=== PATIENT | female | born 1970 | race Caucasian/White ===

== ENCOUNTER 2018-03-09 13:44 | Outpatient (CLI) | payer OTHER ==
--- NOTE | 2018-03-09 15:41 | ULT ---
FOCUSED ULTRASOUND OF THE RIGHT BREAST: 03/09/2018 HISTORY: Faint calcifications in the upper outer right breast and suspicious mass in the left breast. FINDINGS: Focused ultrasound of the right upper outer quadrant demonstrates no solid mass or abnormal shadowing . IMPRESSION: Unremarkable focused ultrasound of the right breast. Mammogram demonstrates a cluster of nonspecific microcalcifications in the upper outer right breast, for which a stereotactic biopsy is recommended. POS: OFF
--- NOTE | 2018-03-09 15:45 | ULT ---
FOCUSED ULTRASOUND OF THE LEFT BREAST: 03/09/2018 HISTORY: Palpable abnormality in the left breast. Suspicious calcifications in the left breast, in the area o f palpable concern on mammography. FINDINGS: A focused ultrasound in the area of palpable concern demonstrates an irregularity marginated, heterog eneously hypoechoic, solid mass, measuring 2.2 x 1.6 x 1.5 cm. This correlates with the palpable abn ormality, and it contains punctate foci of increased echogenicity, which are felt to represent the in determinate calcifications noted on mammography. IMPRESSION: BI-RADS 4-Suspicious abnormality. Biopsy advised. Recommend ultrasound-guided core biopsy of solid mass in the left breast. CODE T POS: OFF
== END 2018-03-09 13:45 | disposition home or self-care (01) ==
LOC: BICMAMMO 13:44
PROVIDERS: ATTEND Pediatrics
DX: N63.20 Unspecified lump in the left breast, unspecified quadrant (principal); Z80.3 Family history of malignant neoplasm of breast
CPT/HCPCS: 77066; G0279

== ENCOUNTER → 2018-03-18 | Day surgery (SDC) | payer OTHER ==
--- NOTE | 2018-03-18 10:42 | ULT ---
ULTRASOUND GUIDED LEFT BREAST BIOPSY: Date: 03/18/18 HISTORY: Mass and calcifications noted on recent mammogram and ultrasound, recommended for biopsy. FINDINGS: After informed consent was obtained, the patient was prepped and draped in the normal sterile fashion . The lesion in question was in the 3 o'clock position of the left breast. It measures approximately 2.2 cm in length and does show some internal calcifications. The skin was anesthetized with 1% lidoca ine mixed with sodium bicarb. A small skin incision was made with a #11 scalpel blade. A total of thr ee core biopsies were performed using a 14 gauge needle. Subsequently, a biopsy clip was deployed. Th e clip is in good position. The patient tolerated the procedure well. No immediate complications. IMPRESSION: Ultrasound directed left breast biopsy. No immediate complications of the procedure. POS: OFF
--- NOTE | 2018-03-18 10:45 | MMO ---
STEREOTACTIC LOCALIZATION AND PERCUCTANEOUS BIOPSY OF RIGHT BREAST CALCIFICATIONS: Date: 03/18/18 HISTORY: Right breast calcifications noted on recent mammogram recommended for biopsy. TECHNIQUE: After informed consent was obtained, the patient was prepped and draped in the normal sterile fashion . Local anesthesia with obtained with 1% lidocaine mixed with sodium bicarb. A small skin incision wa s made with a #11 scalpel blade. CC approach was used for this biopsy. After the calcifications were localized stereotactically, biopsies were performed using a 10 gauge vacuum-assisted needle at the 12 o'clock, 2 o'clock, 4 o'clock, 6 o'clock, 8 o'clock, and 10 o'clock positions. Specimen radiograph c onfirmed the presence of some calcifications within the breast specimen. A biopsy clip was deployed. The patient tolerated the procedure well. Hemostasis was obtained without difficulty. There were no i mmediate complications of the procedure. IMPRESSION: Stereotactic localization and percutaneous biopsy of right breast calcifications. POS: OFF
--- NOTE | 2018-03-18 10:46 | MMO ---
SPECIMEN RADIOGRAPH: Specimen radiograph confirms the presence of breast calcifications on the specimen. POS: OFF
--- NOTE | 2018-03-18 10:47 | MMO ---
RIGHT UNILATERAL MAMMOGRAM: Date: 03/18/18 HISTORY: Post biopsy mammogram. FINDINGS: Post biopsy images of the breast confirm the presence of a breast clip, which is in the area of the c alcifications. IMPRESSION: Post mammogram showing clip placement, which corresponds to the area of questionable calcifications i n the upper outer right breast. POS: OFF
== END ==
LOC: MAMMO 06:53
PROVIDERS: ATTEND Pediatrics
PROC: 0HBV3ZX Excision of Bilateral Breast, Percutaneous Approach, Diagnostic (ICD-10-PCS; principal; 2018-03-18)
DX: C50.812 Malignant neoplasm of overlapping sites of left female breast (principal); N60.81 Other benign mammary dysplasias of right breast; R92.0 Mammographic microcalcification found on diagnostic imaging of breast
CPT/HCPCS: 19083; 19283; 76098; 88305; 88341; 88342

== ENCOUNTER 2018-04-15 00:33 | Outpatient (CLI) | payer OTHER ==
[2018-04-15 13:23] LABS: #Basophils 0.1 thou/uL (0.0-0.2); #Eosinphils 0.1 thou/uL (0.0-0.7); #Lymphocytes 2.6 thou/uL (1.20-3.40); #Monocytes 0.5 thou/uL (0.11-0.59); #Neutrophils 2.9 thou/uL (1.40-6.50); %Basophils 1.7 % (0.0-1.0); %Eosinophils 0.8 % (0.0-10.0); %Lymphocytes 42.4 % (21.0-51.0); %Monocytes 8.8 % (0.0-10.0); %Neutrophils 46.3 % (42.0-75.0); Hemoglobin 14.9 g/dL (12.0-16.0); Mean Corpuscular HGB CONC 33.1 g/dL (32.0-36.0); Mean Corpuscular Hemoglobin 33.1 pg (27.0-31.0); Mean Platelet Volume 6.5 fL (7.4-10.4); Platelet Count 295 thou/uL (130-400); RBC Distribution Width 11.1 % (11.5-14.5); Red Blood Cell (RBC) Count 4.49 mill/uL (4.20-5.40); White Blood Cell (WBC) Count 6.2 thou/uL (4.8-10.8)
[2018-04-15 13:57] LABS: BHCG - Serum Negative (NEGATIVE); Pregs Control Background? CLEAR/WHITE (CLR/WHITE); Pregs Control Bar Appear? YES (CONTROL BAR)
[2018-04-15 13:59] LABS: Anion Gap 13 mmol/L (10-20); BUN (Urea Nitrogen) 11 mg/dL (7.0-18.7); Calc. Creatinine Clearance 0 mL/min (70-130); Calcium 9.9 mg/dL (7.8-10.44); Carbon Dioxide 23 mmol/L (22-29); Chloride 103 mmol/L (98-107); Estimated GFR-MDRD Greater than 90; Glucose 92 mg/dL (70-105); Sodium 135 mmol/L (136-145)
--- NOTE | 2018-04-16 07:50 | EKG ---
Test Reason : Blood Pressure : / mmHG Vent. Rate : 096 BPM Atrial Rate : 096 BPM P-R Int : 158 ms QRS Dur : 074 ms QT Int : 338 ms P-R-T Axes : 077 024 075 degrees QTc Int : 427 ms Normal sinus rhythm with sinus arrhythmia Possible Left atrial enlargement Possible Anterior infarct , age undetermined Abnormal ECG No previous ECGs available Confirmed by STIVEN CHANCE ([id number]) on 04/16/2018 7:50:06 AM Referred By: LUZ Confirmed By:STIVEN CHANCE
== END 2018-04-15 00:34 | disposition home or self-care (01) ==
LOC: LABBT 00:33
PROVIDERS: ATTEND Specialist
DX: Z01.818 Encounter for other preprocedural examination (principal); C50.912 Malignant neoplasm of unspecified site of left female breast; Z17.0 Estrogen receptor positive status [ER+]; N60.91 Unspecified benign mammary dysplasia of right breast; R59.0 Localized enlarged lymph nodes
CPT/HCPCS: 80048; 84703; 85025; 93005; 93010

== ENCOUNTER 2018-04-21 07:26 | Inpatient (IN) | payer OTHER ==
[2018-04-21] MEDS ORDERED: Ketorolac Tromethamine 30 MG/ML VIAL ONE (09:34)
--- NOTE | 2018-04-21 09:38 | NM ---
LEFT BREAST LYMPHOSCINTIGRAPHY: Date: 04/21/18 HISTORY: Neoplasm of the left breast. TECHNIQUE: A left breast lymphoscintigraphy was performed after administration of 0.39 mCi of technetium-99m chantal tered sulfur colloid injected in a subcutaneous periareolar location. FINDINGS: Periareolar uptake is from the patient's injections. The contrast extends from the periareolar region to the left axilla. There appear to be two left axillary sentinel lymph nodes. IMPRESSION: Left axillary sentinel lymph nodes as above. POS: SCOT
[2018-04-21] MEDS ORDERED: Isosulfan Blue 50 MG/5 ML VIAL ONE (10:28)
[2018-04-21] MEDS ORDERED: Bupivacaine/Epinephrine 0.25% 30 ML VIAL ONE (10:28)
[2018-04-21] MEDS ORDERED: Fentanyl 250 MCG/5 ML VIAL ONE (10:35)
[2018-04-21] MEDS ORDERED: Midazolam HCl 2 mg/2 ml Vial ONE (10:36)
[2018-04-21] MEDS ORDERED: Fentanyl 100 MCG/2 ML VIAL ONE (15:20)
[2018-04-21] MEDS ORDERED: Glycopyrrolate 0.2 MG/ML 5 ML SYRINGE ONE (15:23)
[2018-04-21] MEDS ORDERED: ePHEDrine 50 MG/ML VIAL ONE (15:23)
[2018-04-21] MEDS ORDERED: Ondansetron PF 4 MG/2 ML Vial ONE (15:23)
[2018-04-21] MEDS ORDERED: Lidocaine 1% PF 5 ML VIAL ONE (15:23)
[2018-04-21] MEDS ORDERED: PHENYLEPHRINE-NS 100 MCG/ML 10 ML SYRINGE ONE (15:23)
[2018-04-21] MEDS ORDERED: Esmolol 100 MG/10 ML VIAL ONE (15:23)
[2018-04-21] MEDS ORDERED: Dexamethasone 20 MG/5 ML VIAL ONE (15:23)
[2018-04-21] MEDS ORDERED: PROPOFOL 200 MG/20 ML VIAL ONE (15:23)
[2018-04-21] MEDS ORDERED: Rocuronium Bromide 10 MG/ML (10ML VIAL) ONE (15:23)
[2018-04-21] MEDS ORDERED: HYDROcodone/Acetaminophen 7.5/325 mg Tablet PO PRN (17:29)
[2018-04-21] MEDS ORDERED: Dextrose 5% in Water 1,000 ML IV PRN (17:29)
[2018-04-21] MEDS ORDERED: Morphine 4 MG/ML VIAL SLOW IVP PRN ×2 (17:29)
[2018-04-21] MEDS ORDERED: Promethazine HCl 25 MG/ML VIAL IM PRN (17:29)
[2018-04-21] MEDS ORDERED: Ondansetron PF 4 MG/2 ML Vial IVP PRN (17:29)
[2018-04-21] MEDS ORDERED: Dextrose 50% Abboject 50 ML SYRINGE SLOW IVP PRN (17:29)
[2018-04-21] MEDS ORDERED: hydrALAZINE 20 MG/ML VIAL SLOW IVP PRN (17:29)
[2018-04-21] MEDS ORDERED: D5 1/2 NS w/20 mEq KCL 1,000 ML IV SCH (17:29)
[2018-04-21 17:42] VITALS: BMI 24.5
[2018-04-21] MEDS: HYDROcodone/Acetaminophen 7.5/325 mg Tablet PO PRN (18:30)
[2018-04-21] MEDS ORDERED: Famotidine 20 MG TAB PO SCH (21:00)
[2018-04-21] MEDS ORDERED: Lisinopril 20 MG TAB PO SCH (21:00)
[2018-04-21] MEDS: ALPRAZolam 0.25 MG TAB PO PRN (21:04)
[2018-04-22] MEDS: HYDROcodone/Acetaminophen 7.5/325 mg Tablet PO PRN ×2 (00:13→07:38)
[2018-04-22 05:02] LABS: #Lymphocytes 1.8 thou/uL (1.20-3.40); %Basophils 0.3 % (0.0-1.0); %Eosinophils 0.1 % (0.0-10.0); %Lymphocytes 20.7 % (21.0-51.0); %Neutrophils 67.9 % (42.0-75.0); Hemoglobin 10.2 g/dL (12.0-16.0); Mean Corpuscular HGB CONC 33.5 g/dL (32.0-36.0); Mean Corpuscular Hemoglobin 33.7 pg (27.0-31.0); Mean Platelet Volume 6.7 fL (7.4-10.4); Platelet Count 214 thou/uL (130-400); RBC Distribution Width 10.9 % (11.5-14.5); Red Blood Cell (RBC) Count 3.03 mill/uL (4.20-5.40); White Blood Cell (WBC) Count 8.9 thou/uL (4.8-10.8)
[2018-04-22 05:15] LABS: Anion Gap 7 mmol/L (10-20); BUN (Urea Nitrogen) 7 mg/dL (7.0-18.7); Calc. Creatinine Clearance 120 mL/min (70-130); Calcium 8.2 mg/dL (7.8-10.44); Carbon Dioxide 25 mmol/L (22-29); Chloride 107 mmol/L (98-107); Estimated GFR-MDRD Greater than 90; Glucose 156 mg/dL (70-105); Sodium 135 mmol/L (136-145)
[2018-04-22] MEDS ORDERED: Amlodipine 5 MG TAB PO SCH (09:00)
[2018-04-22] MEDS: ALPRAZolam 0.25 MG TAB PO PRN (09:08)
[2018-04-22 11:49] VITALS: BP 161/75; TEMP 97.1
--- NOTE | 2018-04-23 12:31 | OP ---
DATE OF PROCEDURE: 04/21/2018 PREOPERATIVE DIAGNOSES: Left breast invasive ductal carcinoma, right breast atypical ductal hyperplasia. POSTOPERATIVE DIAGNOSES: Left breast invasive ductal carcinoma, right breast atypical ductal hyperplasia, metastatic disease to left axillary lymph nodes. OPERATION PERFORMED: Bilateral nipple sparing mastectomy, left axillary sentinel lymph node biopsy, left axillary lymph node dissection. ANESTHESIA: General endotracheal. INDICATIONS: The patient is a 48-year-old white female. She recently presented with a fairly large (relative to the size of her breast) left breast cancer. She was recognized to have at least one enlarged lymph node in her left axilla as well. A separate biopsy revealed atypical ductal hyperplasia in the right breast. After discussing options regarding surgical treatment of her disease, she has elected to proceed with a bilateral nipple sparing mastectomy with plans for reconstruction. Lymphoscintigraphy was obtained preoperatively to identify the left axillary sentinel lymph nodes. DESCRIPTION OF OPERATION: Informed consent was obtained. The patient was taken to the operating room where general endotracheal anesthesia was obtained with the patient in supine position. Lymphazurin was infiltrated in the left periareolar subdermal tissue and the breast was massaged for about 5 minutes. Attention was then turned to the left axilla. A transverse incision was created at the inferior aspect of the axilla and dissection was carried through skin and subcutaneous tissue. Neoprobe was used to identify areas of maximum radio intensity. I additionally was able to dissect along the blue lymphatics to identify blue-stained lymph nodes. In so doing, I was able to dissect three sentinel lymph nodes, which I submitted for touch prep cytology. Unfortunately, at least one of these was recognized to have metastatic disease. Since she was getting a mastectomy, I decided to proceed with the full axillary node dissection. The incision was lengthened somewhat. Dissection was carried out initially anteriorly and a flap was raised to identify the pectoralis muscles. I dissected up along the lateral aspect of the pectoralis muscles into the axilla and was able to identify the left axillary vein. I then swept the fatty and lymphatic tissue inferiorly out of the axilla. In so doing, I identified both the long thoracic and thoracodorsal nerves and spared these throughout the dissection. The remainder of the fatty lymphatic tissue was swept out of the axilla as a separate specimen and submitted. Hemostasis was obtained within the wound. A #19 round fluted drain was brought out inferiorly and secured with 3-0 nylon suture. The wound was closed in layers with 3-0 and 4-0 Monocryl suture. Attention was then turned to the right breast. Of note, the bilateral nipple sparing mastectomy was performed in identical fashion on both sides. The only difference was the attempt to gain appropriate clearance of the malignancy in the left breast. A curvilinear incision was created in the inferior mammary crease. Dissection was carried through skin and subcutaneous tissue down to the pectoralis and scalene fascia. The posterior aspect of the breast was dissected off the pectoralis in an ascending fashion, maintaining hemostasis with PlasmaBlade electrocautery. Then dissected the skin and subcutaneous tissue off the breast tissue, grasping the breast tissue with an Allis clamp. Efforts were made to maintain appropriate tissue thickness on the skin flap to maximize viability. The dissection was carried medially towards the sternum and laterally to the lateral aspect of the breast tissue and up along the axillary tail. The specimen was removed intact and tagged with suture for orientation and passed off the field. The subareolar tissue on the left breast was submitted as a specimen to ensure that there was no malignancy involving the nipple and this was negative. The area of the malignancy on the left breast in the upper lateral aspect approximately 3 o'clock radian was identified. Efforts were made to obtain negative margins on the anterior aspect of the cancer as it was recognized to be relatively close to the skin. There was no visible malignancy when the specimen was removed. On each side, a #19 round fluted drain was placed within the wound, that was brought out laterally and inferiorly and secured with a 3-0 nylon suture. The wound was irrigated and meticulous hemostasis was achieved with electrocautery. The skin edges were approximated with 3-0 and 4-0 Monocryl suture and Dermabond was placed externally over all incisions. Fluffed gauze was placed across the chest wall along with a Dio wrap. There were no complications. Blood loss was minimal. The patient tolerated the procedure well and was taken to the recovery room in stable condition. Job ID: [id number]
== END 2018-04-22 14:03 | disposition home or self-care (01) | DRG 580 ==
LOC: SDC 07:26 → SJJU 16:44
PROVIDERS: ADMIT Specialist; ATTEND Specialist
PROC: 0HTV0ZZ Resection of Bilateral Breast, Open Approach (ICD-10-PCS; principal; 2018-04-21)
PROC: 07B60ZX Excision of Left Axillary Lymphatic, Open Approach, Diagnostic (ICD-10-PCS; 2018-04-21)
DX: C50.912 Malignant neoplasm of unspecified site of left female breast (principal); C77.3 Secondary and unspecified malignant neoplasm of axilla and upper limb lymph nodes; N60.91 Unspecified benign mammary dysplasia of right breast
CPT/HCPCS: 36415; 78195; 80048; 85025; 88305; 88307; 88309; 88331; 88334; 88342; A9541; J0131; J1100; J1885; J2001; J2250; J2405; J2704; J3010; J3490; Q9968

== ENCOUNTER 2018-05-19 08:46 | Day surgery (SDC) | payer OTHER ==
[2018-05-18 13:39] VITALS: BMI 23.2
[2018-05-19] MEDS ORDERED: Ketorolac Tromethamine 30 MG/ML VIAL ONE (09:48)
[2018-05-19 10:04] LABS: #Basophils 0.1 thou/uL (0.0-0.2); #Eosinphils 0.1 thou/uL (0.0-0.7); #Lymphocytes 1.8 thou/uL (1.20-3.40); #Monocytes 0.7 thou/uL (0.11-0.59); #Neutrophils 2.3 thou/uL (1.40-6.50); %Basophils 2.8 % (0.0-1.0); %Eosinophils 1.4 % (0.0-10.0); %Lymphocytes 36.2 % (21.0-51.0); %Monocytes 13.7 % (0.0-10.0); %Neutrophils 45.9 % (42.0-75.0); Hemoglobin 12.6 g/dL (12.0-16.0); Mean Corpuscular HGB CONC 33.4 g/dL (32.0-36.0); Mean Corpuscular Hemoglobin 32.3 pg (27.0-31.0); Mean Corpuscular Volume 96.8 fL (78.0-98.0); Mean Platelet Volume 6.1 fL (7.4-10.4); Platelet Count 331 thou/uL (130-400); RBC Distribution Width 11.6 % (11.5-14.5); Red Blood Cell (RBC) Count 3.89 mill/uL (4.20-5.40); White Blood Cell (WBC) Count 4.9 thou/uL (4.8-10.8)
[2018-05-19] MEDS ORDERED: Lidocaine 2% PF 5 ML VIAL ONE (10:13)
[2018-05-19] MEDS ORDERED: Bupivacaine/Epinephrine 0.25% 30 ML VIAL ONE (10:13)
[2018-05-19 10:19] LABS: Anion Gap 10 mmol/L (10-20); BUN (Urea Nitrogen) 11 mg/dL (7.0-18.7); Calc. Creatinine Clearance 94 mL/min (70-130); Calcium 9.7 mg/dL (7.8-10.44); Carbon Dioxide 29 mmol/L (22-29); Chloride 101 mmol/L (98-107); Estimated GFR-MDRD Greater than 90; Glucose 99 mg/dL (70-105); Potassium 3.8 mmol/L (3.5-5.1); Sodium 136 mmol/L (136-145)
[2018-05-19] MEDS ORDERED: Lidocaine 2% Jelly 5 ML TUBE ONE (10:44)
[2018-05-19] MEDS ORDERED: Propofol 500 MG/50 ML VIAL ONE (10:44)
[2018-05-19] MEDS ORDERED: Fentanyl 100 MCG/2 ML VIAL ONE (10:44)
[2018-05-19] MEDS ORDERED: Midazolam HCl 2 mg/2 ml Vial ONE (10:50)
--- NOTE | 2018-05-19 12:02 | RAD ---
Radiograph chest one view: HISTORY: Status post MediPort placement in 48-year-old female FINDINGS: The visualized lung espinoza are clear. The cardiomediastinal silhouette is normal. No pneumothorax. Th ere is a right subclavian MediPort with distal tip overlying the lower portion of the SVC. IMPRESSION: 1. No acute cardiopulmonary findings. 2. Right subclavian implantable vascular access port placement without pneumothorax.
[2018-05-19] MEDS ORDERED: PROPOFOL 200 MG/20 ML VIAL ONE (12:12)
--- NOTE | 2018-05-20 14:09 | OP ---
DATE OF PROCEDURE: 05/19/2018 PREOPERATIVE DIAGNOSIS: Breast cancer, metastatic to a lymph node. POSTOPERATIVE DIAGNOSIS: Breast cancer, metastatic to a lymph node. OPERATION PERFORMED: Placement of a right subclavian low-profile power compatible MediPort. ANESTHESIA: Total intravenous anesthesia with local using 0.25% Marcaine with epinephrine. INDICATIONS: The patient is a 48-year-old white female. She has recently undergone bilateral breast surgery for left breast cancer. She requires adjuvant chemotherapy and was taken to the operating room at this time for MediPort placement for chemotherapy administration. DESCRIPTION OF OPERATION: Informed consent was obtained. The patient was taken to the operating room where total intravenous anesthesia was obtained with the patient in supine position. Right periclavicular area was prepped with ChloraPrep and draped in sterile fashion. Local anesthetic was infiltrated and a large-gauge needle was passed under the clavicle in the subclavian vein. Guidewire was passed through the needle and fluoroscopically confirmed to enter the superior vena cava. Additional local anesthetic was infiltrated and transverse incision was created based on needle insertion site. A subcutaneous pocket was dissected inferiorly. Introducer dilator was passed over the guidewire under fluoroscopic guidance. The guidewire and dilator were removed, and the catheter was passed through the introducer. The tip of the catheter was positioned at the atriocaval junction and the catheter was trimmed to the appropriate length and secured to the locking hub of the MediPort. The port was then placed in the subcutaneous pocket where it was secured to the pectoral fascia with 2 interrupted sutures of 3-0 Prolene. The incision was then closed in layers with 3-0 and 4-0 Monocryl. Additional local anesthetic was infiltrated. The port was cannulated with a Solares needle and it aspirated blood freely and was flushed with heparinized saline. Dermabond was placed externally on the skin incision. There were no complications. Blood loss was negligible. The patient tolerated the procedure well and was taken to recovery room in stable condition. FINDINGS: I used a low-profile power compatible MediPort. The patient's anatomy was within normal limits and there were no problems during the procedure. FINDINGS: A low-profile port was used as she is a thin small patient. It was placed into the right subclavian vein uneventfully. There were no complications and negligible blood loss. Job ID: [id number]
== END 2018-05-19 12:40 | disposition home or self-care (01) ==
LOC: SDC 08:46
PROVIDERS: ATTEND Specialist
PROC: 0JH63WZ Insertion of Totally Implantable Vascular Access Device into Chest Subcutaneous Tissue and Fascia, Percutaneous Approach (ICD-10-PCS; principal; 2018-05-19)
DX: C50.912 Malignant neoplasm of unspecified site of left female breast (principal); C77.3 Secondary and unspecified malignant neoplasm of axilla and upper limb lymph nodes; F17.210 Nicotine dependence, cigarettes, uncomplicated; Z17.0 Estrogen receptor positive status [ER+]; Z79.899 Other long term (current) drug therapy; Z88.1 Allergy status to other antibiotic agents; Z88.8 Allergy status to other drugs, medicaments and biological substances; Z91.048 Other nonmedicinal substance allergy status; Z90.13 Acquired absence of bilateral breasts and nipples
CPT/HCPCS: 36415; 71045; 80048; 85025; C1788; J0131; J1642; J1885; J2001; J2250; J2704; J3010

== ENCOUNTER 2018-05-20 14:21 | Outpatient (CLI) | payer OTHER | END 2018-05-20 14:22 | disposition home or self-care (01) | LOC: ULT 14:21 | PROVIDERS: ATTEND Internal Medicine Hematology & Oncology | DX: C50.412 Malignant neoplasm of upper-outer quadrant of left female breast (principal); I08.1 Rheumatic disorders of both mitral and tricuspid valves; Z79.899 Other long term (current) drug therapy | CPT/HCPCS: 93306 ==

== ENCOUNTER 2019-05-11 08:28 | Outpatient (CLI) | payer OTHER ==
--- NOTE | 2019-05-11 09:28 | RAD ---
TWO VIEWS CHEST: HISTORY: Left-sided chest pain. Cough and fever on and off since March. History of breast cancer. COMPARISON: 05/19/2018. FINDINGS: The left-sided MediPort has been removed. Cardiac silhouette and pulmonary vasculature are within no rmal limits. The lungs are clear. Surgical clips again overlie the left axillary region. No other interval change. IMPRESSION: No acute cardiopulmonary process. POS: [facility]
== END 2019-05-11 08:29 | disposition home or self-care (01) ==
LOC: BICRAD 08:28
PROVIDERS: ATTEND Internal Medicine Hematology & Oncology
DX: C50.412 Malignant neoplasm of upper-outer quadrant of left female breast (principal); R07.9 Chest pain, unspecified
CPT/HCPCS: 71046

== ENCOUNTER 2020-11-15 09:11 | Outpatient (CLI) | payer BC ==
[~2020-11-15 09:11] MED LIST: Iopamidol-370 76% 500 ML 1 ML ONE
== END 2020-11-15 09:12 | disposition home or self-care (01) ==
LOC: BICCT 09:11
PROVIDERS: ATTEND Internal Medicine
DX: K21.9 Gastro-esophageal reflux disease without esophagitis (principal); K59.00 Constipation, unspecified; R93.3 Abnormal findings on diagnostic imaging of other parts of digestive tract; K76.89 Other specified diseases of liver; N28.1 Cyst of kidney, acquired; K76.0 Fatty (change of) liver, not elsewhere classified
CPT/HCPCS: 74170